=== PATIENT | male | born 1985 | race Caucasian/White ===

== ENCOUNTER 2017-08-31 19:19 | Emergency (ER) | payer OTHER ==
[2017-08-31] MEDS ORDERED: LORazepam 1 MG TAB PO ONE ×2 (20:09→20:11)
[2017-08-31] MEDS ORDERED: chlordiazePOXIDE 25 MG CAP PO ONE (20:11)
--- NOTE | 2017-08-31 20:13 | EDPHY ---
H & P Time Seen by Provider: 08/31/17 20:02 HPI/ROS: CHIEF COMPLAINT: "I am withdrawing " HISTORY OF PRESENT ILLNESS: 31-year-old male history of heavy daily alcohol use in the ER via private vehicle requesting assistance from alcohol detoxification. Denies suicidal homicidal ideation. Denies seizure. Denies hallucination. Denies altered mentation according to friends. Last drink of alcohol was last evening. He is trying to remain sober long-term. PRIMARY CARE PROVIDER: REVIEW OF SYSTEMS: A ten point review of systems was performed and is negative with the exception of the items mentioned in the HPI PAST MEDICAL & SURGICAL HISTORY: alcoholism SOCIAL HISTORY:last drink alcohol last night PHYSICAL EXAM (Prior to examination, patient consented to physical exam, hands were washed and my usual and customary physical exam procedures followed) 1) GENERAL: Well-developed, well-nourished, alert and oriented. Appears anxious. Tremulous. 2) HEAD: Normocephalic, atraumatic 3) HEENT: Pupils equal, round, reactive to light bilaterally. Sclera anicteric. Nasopharynx, oropharynx, clear, no lesions. Moist mucous membranes 4) NECK: Full range of motion, no meningeal signs. 5) LUNGS: Clear auscultation bilaterally, no wheezes, no rhonchi, no retractions. 6) HEART: Regular rate and rhythm, no murmur, no heave, no gallop. 7) ABDOMEN: No guarding, no rebound, no focal tenderness,, 8) MUSCULOSKELETAL: tremulous No peripheral edema or discoloration. 9) BACK: no visual or palpable abnormality. 10) SKIN: No rash, no petechiae. 11) Psychiatric: Patient is oriented X 3, there is no agitation. DIFFERENTIAL DIAGNOSIS: in no particular including but not limited to acute alcohol withdrawal, delirium tremens, alcohol related seizure E Smoking Status: Never smoked Constitutional: Initial Vital Signs Temperature (C) 36.7 C 08/31/17 19:25 Heart Rate 115 H 08/31/17 19:25 Respiratory Rate 20 08/31/17 19:25 Blood Pressure 136/98 H 08/31/17 19:25 O2 Sat (%) 95 08/31/17 19:25 O2 Delivery Mode Room Air Allergies/Adverse Reactions: No Known Allergies Allergy (Unverified 08/31/17 19:34) Home Medications: Medication Instructions Recorded NK [No Known Home Meds] 08/31/17 MDM/Departure - MDM Medications Given: Discontinued Medications Chlordiazepoxide (Librium 25 Mg Prepack#6) 1 btl TAKEHOME EDNOW ONE Stop: 08/31/17 20:20 Last Admin: 08/31/17 20:45 Dose: 1 btl Chlordiazepoxide HCl (Librium) 25 mg PO EDNOW ONE Stop: 08/31/17 20:12 Last Admin: 08/31/17 20:20 Dose: 25 mg Lorazepam (Ativan) 2 mg PO EDNOW ONE Stop: 08/31/17 20:10 Last Admin: 08/31/17 20:23 Dose: Not Given Lorazepam (Ativan) 1 mg PO EDNOW ONE Stop: 08/31/17 20:12 Last Admin: 08/31/17 20:20 Dose: 1 mg ED Course/Re-evaluation: 8:19 p.m. Doubt delirium tremens. No seizure. [facility] He will be given dose of Librium and Ativan in the ER, observed for a period of time and will have his friends take him to the [facility]. 9:04 p.m.: Re-evaluation after Librium and Ativan in the ER. Heart rate in the mid 80s. He remains mildly tremulous, is answering questions appropriately no evidence of delirium, no seizure. His friend will drive him to the [facility] with Librium.Care of patient under supervision of secondary supervising physician Dr Luna . - Depart Disposition: Home, Routine, Self-Care Clinical Impression: Alcohol withdrawal Qualifiers: Complication of substance-induced condition: uncomplicated Qualified Code(s): F10.230 - Alcohol dependence with withdrawal, uncomplicated Condition: Good Instructions: Chlordiazepoxide (By mouth), Alcohol Withdrawal (ED) Referrals: [facility] [Outside] - As per Instructions
[2017-08-31] MEDS ORDERED: CHLORDIAZEPOXIDE 25MG PREPK#6 BTL TAKEHOME ONE (20:19)
[2017-08-31 21:03] VITALS: BP 134/88; PULSE 84; RESP 16; TEMP 98.2; O2SAT 96
== END 2017-08-31 21:06 | disposition home or self-care (01) ==
DX: F10.230 Alcohol dependence with withdrawal, uncomplicated (principal)